=== PATIENT | male | born 1985 | race Native Hawaiian/Other Pacific Islander ===

== ENCOUNTER 2017-09-03 11:57 | Emergency (ER) | payer OTHER ==
[2017-09-03 12:05] VITALS: BP 119/78; PULSE 111; RESP 20; TEMP 102.3; O2SAT 97
--- NOTE | 2017-09-03 12:21 | C.PDOC ---
History Of Present Illness 31 y/o male presents to the ER complaining of subjective fever, cough, sore throat, and body aches which have been present for the past 2 days. Patient states that his roommates have similar symptoms. Patient denies having abdominal pain, nausea, vomiting, and diarrhea. HPI: Influenza Time Seen by Provider: 09/03/17 12:10 Chief Complaint: Flu-like Symptoms History Per: Patient Exam Limitations: no limitations Onset/Duration Of Symptoms: Days Symptoms include: fever, bodyaches, sore throat, cough. denies: vomiting, diarrhea Sick Contacts (Context): Friend(s) (roommates) Risk factors for flu complications: No: adult > 65 years, chronic lung disease, heart disease, renal disease, obesity (BMI > 40) Past Medical History Reviewed: Historical Data, Nursing Documentation, Vital Signs Vital Signs: Last Vital Signs Temp 102.3 F H 09/03/17 12:02 Pulse 111 H 09/03/17 12:02 Resp 20 09/03/17 12:02 BP 119/78 09/03/17 12:02 Pulse Ox 97 09/03/17 12:02 - Medical History PMH: No Chronic Diseases Surgical History: No Surg Hx Family History: States: No Known Family Hx - Social History Hx Alcohol Use: No Hx Substance Use: No - Immunization History Hx Tetanus Toxoid Vaccination: No Hx Influenza Vaccination: No Hx Pneumococcal Vaccination: No Review Of Systems Except As Marked, All Systems Reviewed And Found Negative. Constitutional: Positive for: Fever (subjective fever), Malaise. Negative for: Chills ENT: Positive for: Throat Pain Respiratory: Positive for: Cough Gastrointestinal: Negative for: Nausea, Vomiting, Abdominal Pain, Diarrhea Physical Exam - Physical Exam Appears: Non-toxic, No Acute Distress Skin: Warm, Dry, Other (flushed ) Head: Atraumatic, Normacephalic Eye(s): bilateral: Other (watery) Ear(s): Bilateral: Normal Nose: Normal Oral Mucosa: Moist Throat: Normal, No Erythema, No Exudate Neck: Supple Chest: Symmetrical Cardiovascular: Rhythm Regular Respiratory: Normal Breath Sounds, No Accessory Muscle Use, No Rales, No Rhonchi , No Wheezing Neurological/Psych: Oriented x3, Normal Speech, Normal Motor, Normal Sensation Medical Decision Making Medical Decision Making: Plan: --Motrin 600 mg PO --Tamiflu 75 mg PO --Tylenol 975 mg PO - ECG O2 Sat by Pulse Oximetry: 97 (RA) Pulse Ox Interpretation: Normal Disposition Counseled Patient/Family Regarding: Diagnosis, Need For Followup, Rx Given - Disposition Disposition: HOME/ ROUTINE Disposition Time: 12:29 Condition: STABLE Additional Instructions: Drink plenty liquids. Take medication as indicated. Follow up with your doctor. Prescriptions: Oseltamivir [Tamiflu] 1 cap PO BID #10 cap Instructions: Flu, Adult (DC) Forms: [employer] (Scottish), General Discharge Instructions - Clinical Impression Clinical Impression: Influenza - Scribe Statement The provider has reviewed the documentation as recorded by the [employer] Orville Escobedo Provider Attestation: All medical record entries made by the Scribe were at my direction and personally dictated by me. I have reviewed the chart and agree that the record accurately reflects my personal performance of the history, physical exam, medical decision making, and the department course for this patient. I have also personally directed, reviewed, and agree with the discharge instructions and disposition.
== END 2017-09-03 12:42 | disposition home or self-care (01) ==
LOC: C.ER 11:57
DX: J11.1 Influenza due to unidentified influenza virus with other respiratory manifestations (principal)